=== PATIENT | male | born 1995 | race African-American/Black ===

== ENCOUNTER 2019-01-07 09:57 | Emergency (ER) | payer SELFPAY ==
[~2019-01-07] VITALS: Ht 182.9 cm; Wt 86.2 kg
[2019-01-07 10:05] VITALS: BP 133/65
[2019-01-07] MEDS ORDERED: AMOX500C PO (12:18)
--- NOTE | 2019-01-07 12:18 | PHYS DOC ---
Past Medical History Past Medical History: No Pertinent History Past Surgical History: No Surgical History Alcohol Use: Occasionally Drug Use: None Adult General Chief Complaint Chief Complaint: SORE THROAT HPI HPI 23-year-old male presents to ER with complaints of sore throat and flulike illness which started last week. He reports his sore throat is worse today so he came to the ER for eval. He reports his mom and her boyfriend are both sick with similar illness. He denies difficulty swallowing. He reports he has not taken any [id number]-lgl-[id number] medicine for pain. He reports he has had chills and felt feverish- denies checking his temp. He denies N/V/D, cough, neck pain, or GONZALES. Review of Systems Review of Systems Constitutional: Reports chills and felt feverish- feels fatigued Eyes: Denies change in visual acuity, redness, or eye pain [] HENT: Reports sore throat and sinus congestion Respiratory: Denies cough or shortness of breath [] Cardiovascular: Denies CP/palp. GI: Denies abdominal pain, nausea, vomiting, bloody stools or diarrhea [] : Denies urinary sxs Musculoskeletal: Denies back/neck pain or joint pain [] Integument: Denies rash or skin lesions [] Neurologic: Denies headache, focal weakness or sensory changes [] All other systems were reviewed and found to be within normal limits, except as documented in this note. Allergies Allergies Allergies Coded Allergies Type Severity Reaction Last Updated Verified No Known Drug Allergies 01/07/19 No Physical Exam Physical Exam Constitutional: Well developed, well nourished, no acute distress, non-toxic appearance. [] HENT: Normocephalic, atraumatic, bilateral ears normal, bilat. tonsillar swelling/erythema- uvula midline, no exudate or visible abscess, no muffled voice, no difficulty swallowing, nose normal. [] Eyes: Pupils equal, conjunctiva normal, no discharge. [] Neck: Normal range of motion, no tenderness, supple, no stridor/gross adenopathy. Trachea midline Cardiovascular: Heart rate regular rhythm, no murmur [] Lungs & Thorax: Bilateral breath sounds clear to auscultation. Resp. equal/ nonlabored Abdomen: Bowel sounds normal, soft, no tenderness Skin: Warm, dry, no erythema, no rash. [] Extremities: ROM intact, no edema. [] Neurologic: Alert and oriented X 3, normal motor function, normal sensory function, no focal deficits noted. [] Psychologic: Affect normal, judgement normal, mood normal. [] Current Patient Data Vital Signs Vital Signs Date Time Temp Pulse Resp B/P (MAP) Pulse Ox O2 Delivery O2 Flow Rate FiO2 01/07/19 10:05 98.3 83 16 133/65 (87) 99 Room Air 98.3 Lab Values Laboratory Tests Test 01/07/19 11:15 Group A Streptococcus Rapid Positive (NEGATIVE) EKG EKG [] Radiology/Procedures Radiology/Procedures [] Course & Med Decision Making Course & Med Decision Making Pertinent Labs reviewed. (See chart for details) 1210: Discussed positive strep test with patient and option provided for IM injection of penicillin while in the ER patient is not wanting a shot and wants prescription with discharge paperwork. Will provide Rx for amoxicillin and give patient community clinic and physician referral information with discharge paperwork for follow-up purposes. Patient advised on use of Tylenol and ibuprofen. Patient encouraged to increase water intake. Patient is nontoxic in appearance speaking in full sentences without difficulty swallowing. Dose of ibuprofen will be provided while in the ER. Dragon Disclaimer Dragon Disclaimer This electronic medical record was generated, in whole or in part, using a voice recognition dictation system. Departure Departure Impression: Primary Impression: Pharyngitis Disposition: 01 HOME, SELF-CARE Condition: STABLE Referrals: NO PCP (PCP) Patient Instructions: Viral and Bacterial Pharyngitis Additional Instructions: Drink plenty of water and eat well-balanced meals. Tylenol and/or ibuprofen as directed on container as needed for fever and pain. If symptoms persist follow-up with your primary care physician for reevaluation and further care. Scripts Amoxicillin (AMOXICILLIN) 500 Mg Capsule 1 CAP PO DAILY, #5 CAP 0 Refills Prov: DEDE CORREA APRN 01/07/19 DEDE CORREA APRN Jan 07, 2019 12:18
== END 2019-01-07 12:36 | disposition home or self-care (01) ==
LOC: ER 09:57
DX: J02.9 Acute pharyngitis, unspecified (principal)
CPT/HCPCS: 87880; 99283